=== PATIENT | male | born 1990 | race Hispanic/Latino ===

== ENCOUNTER 2017-08-14 14:17 | Inpatient (IN) | payer OTHER, SELFPAY ==
[~2017-08-14 14:17] MED LIST: ISOVUE-370 76%-LOCM 1 ML ONE
[2017-08-14] MEDS ORDERED: Ondansetron HCl/PF 4 MG/2 ML Vial ONE (14:24)
[2017-08-14] MEDS ORDERED: Fentanyl 100 MCG/2 ML VIAL ONE (14:24)
[2017-08-14 14:52] LABS: #Basophils 0.1 thou/uL (0.0-0.2); #Eosinphils 0.1 thou/uL (0.0-0.7); #Lymphocytes 1.6 thou/uL (1.20-3.40); #Monocytes 0.7 thou/uL (0.11-0.59); #Neutrophils 12.3 thou/uL (1.40-6.50); %Basophils 0.4 % (0.0-1.0); %Lymphocytes 11.1 % (21.0-51.0); %Monocytes 4.7 % (0.0-10.0); %Neutrophils 82.9 % (42.0-75.0); Hemoglobin 16.1 g/dL (14.0-18.0); Mean Corpuscular HGB CONC 33.2 g/dL (32.0-36.0); Mean Corpuscular Hemoglobin 31.7 pg (27.0-31.0); Mean Corpuscular Volume 95.5 fl (80.0-94.0); Mean Platelet Volume 7.9 fL (7.4-10.4); Platelet Count 228 thou/uL (130-400); RBC Distribution Width 11.6 % (11.5-14.5); Red Blood Cell (RBC) Count 5.09 mill/uL (4.70-6.10); White Blood Cell (WBC) Count 14.8 thou/uL (4.8-10.8)
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
[2017-08-14 14:58] LABS: INR-International Normal Ratio 1.1; PTT 25.2 SEC (22.9-36.1); Prothrombin Time 13.8 SEC (12.0-14.7)
[2017-08-14 15:03] LABS: Acetaminophen Less than 6.0 mcg/mL (10.0-30.0); Alcohol 81 mg/dL (Less than 10); Anion Gap 16 mmol/L (10-20); BUN (Urea Nitrogen) 11 mg/dL (8.9-20.6); Calc. Creatinine Clearance 0 mL/min (70-130); Calcium 9.3 mg/dL (7.8-10.44); Carbon Dioxide 20 mmol/L (22-29); Chloride 108 mmol/L (98-107); Estimated GFR-MDRD Greater than 90; Glucose 97 mg/dL (70-105); Lipase 52 U/L (8-78); Potassium 3.7 mmol/L (3.5-5.1); Salicylate Less than 8.0 mg/dL (15.0-30.0); Sodium 140 mmol/L (136-145)
[2017-08-14] MEDS ORDERED: Adacel (T-DAP) 0.5 ML VIAL ONE (15:43)
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
[2017-08-14 19:35] LABS: Bilirubin Negative (Negative); Blood, Urine Trace (Negative); Clarity CLEAR (Clear); Glucose, Urine (Dipstick) Negative (Negative); Leukocyte Negative (Negative); Nitrite Negative (Negative); Protein, Urine (Dipstick) Negative (Neg-Trace); Urobilinogen 0.2 mg/dL (0.2-1.0); pH, Urine 5.5 (5.0-9.0)
[2017-08-14 19:38] LABS: Bacteria/HPF None Seen HPF (None Seen); Hyaline Casts/LPF 0-3 HYALINE CAST LPF (0-3 Hyaline); RBC/HPF 0-3 HPF (0-3); Squamous Epithelial 0-3 HPF (0-3); WBC/HPF 0-3 HPF (0-3)
[2017-08-14 19:42] LABS: Specific Gravity, Urine 1.045 (1.002-1.036)
[2017-08-14 19:46] LABS: Amphetamine Not Detected (NotDetected); Barbiturates Screen Not Detected (NotDetected); Benzodiazepine Screen Not Detected (NotDetected); Cocaine Metabolite Screen Detected (NotDetected); Medtox Control Line Valid? VALID (VALID); Medtox Reader # READER 1; Methadone Not Detected (NotDetected); Methamphetamine Not Detected (NotDetected); Opiate Screen Not Detected (NotDetected); Oxycodone Screen Not Detected (NotDetected); Phencyclidine (PCP) Not Detected (NotDetected); THC/Cannabinoid Screen Detected (NotDetected); Tricyclic Screen Not Detected (NotDetected)
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
[2017-08-14] MEDS ORDERED: traMADol HCl 50 MG TAB PO PRN (21:06)
[2017-08-14] MEDS ORDERED: Dextrose 50% Abboject 50 ML SYRINGE SLOW IVP PRN (21:06)
[2017-08-14] MEDS ORDERED: Acetaminophen 500 MG TAB PO PRN (21:06)
[2017-08-14] MEDS ORDERED: Ondansetron HCl/PF 4 MG/2 ML Vial IVP PRN (21:06)
[2017-08-14] MEDS ORDERED: Dextrose 5% in Water 1,000 ML IV PRN (21:06)
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
[2017-08-14 22:44] LABS: Hemoglobin 15.3 g/dL (14.0-18.0)
[2017-08-14] MEDS: Sodium Chloride 0.9% 1,000 ML IV SCH (23:35)
[2017-08-15 03:55] VITALS: BMI 30.2
[2017-08-15] MEDS: Sodium Chloride 0.9% 1,000 ML IV SCH (05:41)
[2017-08-15 05:55] LABS: #Eosinphils 0.1 thou/uL (0.0-0.7); #Lymphocytes 1.7 thou/uL (1.20-3.40); #Monocytes 0.9 thou/uL (0.11-0.59); #Neutrophils 7.4 thou/uL (1.40-6.50); %Basophils 0.3 % (0.0-1.0); %Eosinophils 0.9 % (0.0-10.0); %Lymphocytes 16.8 % (21.0-51.0); %Monocytes 8.5 % (0.0-10.0); %Neutrophils 73.5 % (42.0-75.0); Hemoglobin 14.5 g/dL (14.0-18.0); Mean Corpuscular HGB CONC 33.6 g/dL (32.0-36.0); Mean Corpuscular Hemoglobin 31.8 pg (27.0-31.0); Mean Corpuscular Volume 94.7 fl (80.0-94.0); Mean Platelet Volume 8.5 fL (7.4-10.4); Platelet Count 198 thou/uL (130-400); RBC Distribution Width 11.5 % (11.5-14.5); Red Blood Cell (RBC) Count 4.54 mill/uL (4.70-6.10); White Blood Cell (WBC) Count 10.1 thou/uL (4.8-10.8)
[2017-08-15 06:12] LABS: Anion Gap 13 mmol/L (10-20); BUN (Urea Nitrogen) 15 mg/dL (8.9-20.6); Calc. Creatinine Clearance 169 mL/min (70-130); Calcium 9.3 mg/dL (7.8-10.44); Carbon Dioxide 25 mmol/L (22-29); Chloride 106 mmol/L (98-107); Estimated GFR-MDRD Greater than 90; Glucose 88 mg/dL (70-105); Potassium 3.8 mmol/L (3.5-5.1); Sodium 140 mmol/L (136-145)
[2017-08-15] MEDS ORDERED: Famotidine/PF 20 mg/2ml Vial SLOW IVP SCH (09:00)
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
[2017-08-15 16:19] VITALS: BP 120/57; TEMP 98.3
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
== END 2017-08-15 18:26 | disposition home or self-care (01) | DRG 563 ==
LOC: ERS 14:17 → ERHOLD 15:58 → IMCU/EMU 23:06
PROVIDERS: ADMIT Surgery; ATTEND Surgery
PROC: 2W3SX1Z Immobilization of Right Foot using Splint (ICD-10-PCS; principal; 2017-08-14)
DX: S92.121A Displaced fracture of body of right talus, initial encounter for closed fracture (principal); S36.030A Superficial (capsular) laceration of spleen, initial encounter; S20.319A Abrasion of unspecified front wall of thorax, initial encounter; S30.811A Abrasion of abdominal wall, initial encounter; V47.0XXA Car driver injured in collision with fixed or stationary object in nontraffic accident, initial encounter
CPT/HCPCS: 29515; 36415; 70450; 71260; 72125; 74177; 80048; 80306; 80307; 81003; 81015; 83690; 85025; 85610; 85730; 87086; 90471; 90715; 96361; 96374; 96375; 99406; G0390; G8978-GP-CJ; G8979-GP-CJ; G8980-GP-CJ; J2405; J3010

== ENCOUNTER 2018-09-17 10:17 | Outpatient (CLI) | payer OTHER ==
--- NOTE | 2018-09-17 11:36 | RAD ---
LEFT KNEE 2 VIEWS: Date: 09/17/18 COMPARISON: None. HISTORY: Disability evaluation. FINDINGS: No significant knee joint effusion. No displaced fracture or evidence of dislocation. IMPRESSION: No acute findings. POS: [facility]
--- NOTE | 2018-09-17 11:40 | RAD ---
RIGHT FOOT 2 VIEWS: Date: 09/17/18 HISTORY: Disability exam. FINDINGS: Minimal osteoarthritic changes of the first metatarsophalangeal joint are seen. No other significant findings. IMPRESSION: Minimal arthritic changes of the first metatarsophalangeal joint. POS: [facility]
== END 2018-09-17 10:18 | disposition home or self-care (01) ==
LOC: BICRAD 10:17
PROVIDERS: ATTEND Internal Medicine
DX: Z02.71 Encounter for disability determination (principal); M19.071 Primary osteoarthritis, right ankle and foot

== ENCOUNTER 2018-09-19 17:59 | Emergency (ER) | payer OTHER, SELFPAY | END 2018-09-19 18:17 | disposition home or self-care (01) | LOC: ERS 17:59 | DX: B86 Scabies (principal); F17.210 Nicotine dependence, cigarettes, uncomplicated | CPT/HCPCS: 99282 ==